=== PATIENT | male | born 2005 | race Two or more races ===

== ENCOUNTER 2023-02-01 18:05 | Emergency (ER) | payer BC, OTHER ==
[~2023-02-01] VITALS: Ht 172.7 cm; Wt 78.4 kg
[2023-02-01] MEDS ORDERED: TETRACAINE HCL 0.5% OPTH(EYE) SOLN 4ML LEFTEYE ONE (22:00)
[2023-02-01] MEDS ORDERED: FLUORESCEIN SOD OPTH TEST STRIP LEFTEYE ONE (22:00)
[2023-02-01] MEDS ORDERED: ERY05OO OP (22:17)
[2023-02-01 22:50] VITALS: BP 132/78
== END 2023-02-01 22:50 | disposition home or self-care (01) ==
LOC: ER 18:09
DX: T15.02XA Foreign body in cornea, left eye, initial encounter (principal); X58.XXXA Exposure to other specified factors, initial encounter; Y93.67 Activity, basketball; Y92.89 Other specified places as the place of occurrence of the external cause; Y99.8 Other external cause status
CPT/HCPCS: 65220